=== PATIENT | female | born 2000 | race Caucasian/White ===

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

== ENCOUNTER 2018-01-07 22:27 | Emergency (ER) | END 2018-01-08 01:29 | disposition home or self-care (01) ==

== ENCOUNTER 2018-06-08 23:18 | Emergency (ER) | payer OTHER ==
[~2018-06-08] VITALS: Ht 152.4 cm; Wt 84.1 kg
[~2018-06-08 23:18] MED LIST: ACET325T33 PO; ACET500C5 PO; ALBU18HF INHALATION; AMOX500C2 PO; CEPH-443 PO; GUAI-637 PO; IBUP-1542 PO; IBUP-1561 PO; SODI126M NASAL
[2018-06-08 23:23] VITALS: BP 125/72; PULSE 106; RESP 20; Ht 152.4 cm; Wt 84.1 kg
[2018-06-09] MEDS ORDERED: KETOROLAC 30 MG INJ IM STA (02:23)
--- NOTE | 2018-06-09 02:25 | ERD ---
ER Documentation Chief Complaint Chief Complaint C/O TAILBONE PAIN X1 WEEK HPI This is a 18-year-old female presents to emerge department with complaints of tailbone pain for about a week. Stated that she fell a week ago while skating, landed on her tailbone. Was ambulatory after the injury. Did not see a provide r for this. Did not have any imaging for this. LMP: 05/07/2018. . Denies headache, head injury, loss of consciousness, dizziness, neck pain, neck stiffness, throat pain, difficulty swallowing, difficulty breathing lying flat, shoulder pain, chest pain, back pain, abdominal pain, nausea, vomiting, constipation, diarrhea, urinary symptoms, or possibility being p regnant, loss of bowel and bladder control, trauma, injury, falls, difficulty walking due to pain, numbness or tingling sensation, calf pain, recent travel, recent major surgery in the last 3 weeks, calf pain, recent long travel, recent exposure to any illness, recent antibiotic use in the last 3 months, fever, chills, seizures. Past medical history: Surgical history: Social: Denies smoking, use of alcoholic beverages, use of illegal drugs. [facility] is requesting an insisting imaging of the tailbone. ROS All systems reviewed and are negative except as per history of present illness. Medications Home Meds Active Scripts Cephalexin* (Keflex*) 500 Mg Capsule, 500 MG PO TID for 7 Days, CAP Prov:PASILABAN,KLAR F 06/09/18 Ibuprofen* (Motrin*) 800 Mg Tab, 800 MG PO Q6H PRN for PAIN AND OR ELEVATED TEMP, #30 TAB Prov:PASILABANDEBORAHAR F 06/09/18 Guaifenesin* (Robitussin*) 100 Mg/5 Ml Syrup, 200 MG PO Q6H PRN for COUGH, #120 ML Prov:DONAVON DAVID. DIRECTOR OF COMMUNITY EDUCATION 01/08/18 Sodium Chloride (Saline Nasal Mist) 126 Ml Mist, 2 SPRAY NASAL Q2H PRN for NASAL CONGESTION, #1 BOTTLE Prov:DONAVON DAVID. DIRECTOR OF COMMUNITY EDUCATION 01/08/18 Acetaminophen* (Tylophen*) 500 Mg Capsule, 1 CAP PO Q6H PRN for PAIN AND OR ELEVATED TEMP, #20 CAP Prov:DONAVON DAVID. DIRECTOR OF COMMUNITY EDUCATION 01/08/18 Albuterol Sulfate* (Ventolin HFA*) 18 Gm Hfa.aer.ad, 2 PUFF INHALATION Q4H, #1 INHALER Prov:DONAVON DAVID DIRECTOR OF COMMUNITY EDUCATION 01/08/18 Ibuprofen* (Motrin*) 400 Mg Tab, 400 MG PO Q6H PRN for PAIN AND OR ELEVATED TEMP, #30 TAB Prov:CRUZ WHITEC 04/07/17 Acetaminophen* (Tylenol*) 325 Mg Tablet, 2 TAB PO Q4 PRN for PAIN AND OR ELEVATED TEMP, #30 TAB Prov:CRUZ WHITE PA-C 04/07/17 Amoxicillin* (Amoxicillin*) 500 Mg Cap, 500 MG PO TID for 10 Days, CAP Prov:CRUZ WHITE PA-C 04/07/17 Cephalexin* (Keflex*) 500 Mg Capsule, 500 MG PO QID for 10 Days, CAP Prov:TANIA HOLLOWAY NP 07/13/15 Ibuprofen* (Motrin*) 600 Mg Tab, 600 MG PO Q6H PRN for PAIN AND OR ELEVATED TEMP, #30 TAB Prov:TANIA HOLLOWAY NP 07/13/15 Reported Medications [None] Unknown Strength No Conflict Check 07/13/15 Allergies Allergies: Coded Allergies: No Known Allergy (Unverified , 06/09/18) PMhx/Soc Medical and Surgical Hx: pt denies Medical Hx, pt denies Surgical Hx Hx Alcohol Use: No Hx Substance Use: No Hx Tobacco Use: No Smoking Status: Never smoker Physical Exam Vitals Physical Exam Const: No acute distress Head: Atraumatic Eyes: Normal Conjunctiva ENT: Normal External Ears, Nose and Mouth. Neck: Full range of motion. No meningismus. Resp: Clear to auscultation bilaterally Cardio: Regular rate and rhythm, no murmurs Abd: Soft, non tender, non distended. Normal bowel sounds Skin: No petechiae or rashes Back: No midline or flank tenderness. Bilateral hips are stable and unremarkable. Able to bear weight on left lower extremity. Able to bear weight on right lower extremity. Negative straight leg test bilaterally. Negative cross straight leg test bilaterally. C-spine/T-spine/L-spine are midline with good and full range of motion and is no swelling/deformity/bulging/point of tenderness. No saddle anesthesia. No neurovascular deficit. Ambulatory with steady gait. Ext: No cyanosis, or edema Neur: Awake and alert. No neurological deficits. Psych: Normal Mood and Affect Results 24 hrs Laboratory Tests Test 06/09/18 02:41 06/09/18 02:42 Urine Color YELLOW Urine Clarity SLIGHTLY CLOUDY Urine pH 5.0 Urine Specific [place] 1.031 Urine Ketones NEGATIVE mg/dL Urine Nitrite NEGATIVE mg/dL Urine Bilirubin NEGATIVE mg/dL Urine Urobilinogen NEGATIVE mg/dL Urine Leukocyte Esterase 1+ Yuan/ul Urine Microscopic RBC 2 /HPF Urine Microscopic WBC 23 /HPF Urine Squamous Epithelial Cells FEW /HPF Urine Bacteria FEW /HPF Urine Mucus FEW /HPF Urine Hemoglobin NEGATIVE mg/dL Urine Glucose NEGATIVE mg/dL Urine Total Protein NEGATIVE mg/dl POC Beta HCG, Qualitative NEGATIVE Current Medications Medications Dose Sig/Bairon Start Time Status Last (Trade) Ordered Route PRN Stop Time Admin Dose Reason Admin Ketorolac 30 mg ONCE STAT 06/09/18 DC 06/09/18 Tromethamine IM 02:23 02:48 (Toradol) 06/09/18 02:25 Procedures/MDM Diagnostic tests: POC urine : Negative. Urinalysis: UTI. X-ray of the sacral bone: No definite fracture. Treatment: Toradol IM. Re-evaluation: Denies pain. No saddle anesthesia. No neurovascular deficit. Ambulatory with steady gait. No neurological deficit. Differential diagnosis I have low suspicion for fracture, T-spine fracture, pelvic fracture, hip dislocation, septic joint. Final diagnosis: Tailbone contusion. UTI. Prescription: Motrin. Flexeril. Keflex. Follow-up with PCP in the next 24-48 hours. Come back here in the emergency department for any new symptoms or any worsening symptoms. All questions and concerns were answered. Patient and family members verbalized understanding and agreed with plan of care. Hemodynamically stable on discharge. Departure Diagnosis: Primary Impression: Coccyx contusion Additional Impressions: Contusion of coccyx UTI (urinary tract infection) Condition: Stable Additional Instructions: Follow-up with PCP in the next 24-48 hours. Come back here in the emergency department for any new symptoms or any worsening symptoms. GERTRUDE SARAVIA Jun 09, 2018 02:25
[2018-06-09] MEDS ORDERED: IBUP800T48 PO (04:15)
[2018-06-09] MEDS ORDERED: CEPH-443 PO (04:15)
== END 2018-06-09 04:54 | disposition home or self-care (01) ==
LOC: FTE 23:18
DX: S30.0XXA Contusion of lower back and pelvis, initial encounter (principal); N39.0 Urinary tract infection, site not specified; V00.121A Fall from non-in-line roller-skates, initial encounter
CPT/HCPCS: 72220; 81001; 81025; J1885; 96372

== ENCOUNTER → 2018-10-06 | Emergency (ER) | payer OTHER ==
[~2018-10-06] VITALS: Ht 152.4 cm; Wt 85.2 kg
[~2018-10-06] MED LIST changes: +IBUP800T48 PO; +KETOROLAC 30 MG INJ IM STA
[2018-10-06 14:52] VITALS: BP 122/91; PULSE 93; RESP 16; Ht 152.4 cm; Wt 85.2 kg
--- NOTE | 2018-10-06 16:32 | ERD ---
ER Documentation Chief Complaint Chief Complaint LEFT BIG TOE PAIN HPI 18-year-old female presented to ED for left big toe pain. Patient states she recently was in [place] and slipped on a rock. Patient states she still having pain in her big toe. Patient states the pain is a 6 out of 10 and hurts most when she walks. Patient states she has not seen a provider for this yet. Patient states she has not taken any medications for pain. Patient states she can ambulate without the need of crutches. Patient's present to ED and wants to know if her foot is broken. Patient denies any past medical history this is never happened to her before ROS All systems reviewed and are negative except as per history of present illness. Medications Home Meds Active Scripts Ibuprofen* (Motrin*) 400 Mg Tab, 400 MG PO Q6, #30 TAB Prov:VERITO FOFANA PA-C 10/06/18 Cephalexin* (Keflex*) 500 Mg Capsule, 500 MG PO TID for 7 Days, CAP Prov:GERTRUDE SARAVIA F 06/09/18 Ibuprofen* (Motrin*) 800 Mg Tab, 800 MG PO Q6H PRN for PAIN AND OR ELEVATED TEMP, #30 TAB Prov:PASILADEBORAH TOBINAR F 06/09/18 Guaifenesin* (Robitussin*) 100 Mg/5 Ml Syrup, 200 MG PO Q6H PRN for COUGH, #120 ML Prov:DONAVON DAVID NP 01/08/18 Sodium Chloride (Saline Nasal Mist) 126 Ml Mist, 2 SPRAY NASAL Q2H PRN for NASAL CONGESTION, #1 BOTTLE Prov:DONAVON DAVID. WEATHERIZATION AND HOUSING INSPECTOR 01/08/18 Acetaminophen* (Tylophen*) 500 Mg Capsule, 1 CAP PO Q6H PRN for PAIN AND OR ELEVATED TEMP, #20 CAP Prov:DONAVON DAVID. WEATHERIZATION AND HOUSING INSPECTOR 01/08/18 Albuterol Sulfate* (Ventolin HFA*) 18 Gm Hfa.aer.ad, 2 PUFF INHALATION Q4H, #1 INHALER Prov:DONAVON DAVID WEATHERIZATION AND HOUSING INSPECTOR 01/08/18 Ibuprofen* (Motrin*) 400 Mg Tab, 400 MG PO Q6H PRN for PAIN AND OR ELEVATED TEMP, #30 TAB Prov:CRUZ WHITE PA-C 04/07/17 Acetaminophen* (Tylenol*) 325 Mg Tablet, 2 TAB PO Q4 PRN for PAIN AND OR ELEVATED TEMP, #30 TAB Prov:CRUZ WHITE PA-C 04/07/17 Amoxicillin* (Amoxicillin*) 500 Mg Cap, 500 MG PO TID for 10 Days, CAP Prov:CRUZ WHITE PA-C 04/07/17 Cephalexin* (Keflex*) 500 Mg Capsule, 500 MG PO QID for 10 Days, CAP Prov:TANIA HOLLOWAY NP 07/13/15 Ibuprofen* (Motrin*) 600 Mg Tab, 600 MG PO Q6H PRN for PAIN AND OR ELEVATED TEMP, #30 TAB Prov:TANIA HOLLOWAY WEATHERIZATION AND HOUSING INSPECTOR 07/13/15 Reported Medications [None] Unknown Strength No Conflict Check 07/13/15 Allergies Allergies: Coded Allergies: No Known Allergy (Unverified , 06/09/18) PMhx/Soc Medical and Surgical Hx: pt denies Medical Hx, pt denies Surgical Hx Hx Alcohol Use: No Hx Substance Use: No Hx Tobacco Use: No Smoking Status: Never smoker FmHx Family History: No diabetes, No coronary disease, No other Physical Exam Vitals Vital Signs Date Temp Pulse Resp B/P (MAP) Pulse Ox O2 O2 Flow FiO2 Time Delivery Rate 10/06/18 98.5 93 16 122/91 100 14:52 (101) Physical Exam Const: No acute distress Resp: Clear to auscultation bilaterally Cardio: Regular rate and rhythm, no murmurs Ext: No cyanosis, or edema, patient has good pedal pulses, and good motor/sensation in the extremity. Patient does have pain on palpation to the left big toe. Patient is able to wiggle her toes without difficulty. No signs of open wound, abscess, or detached toenail. Results 24 hrs Laboratory Tests Test 10/06/18 16:02 POC Beta HCG, Qualitative NEGATIVE Current Medications Medications Dose Sig/Bairon Start Time Status Last (Trade) Ordered Route PRN Stop Time Admin Dose Reason Admin Ketorolac 30 mg ONCE STAT 10/06/18 DC 10/06/18 Tromethamine IM 15:44 16:07 (Toradol) 10/06/18 15:46 Procedures/MDM ED course: The patient was stable throughout the ED course. The patient and/or family informed of laboratory and diagnostic imaging results throughout the ED course. Diagnostic imaging: Read by radiologist Anurag AYERS: XR Foot. CLINICAL INDICATION: Pain TECHNIQUE: AP, lateral and oblique views of the left foot was obtained. The images were reviewed on a PACS workstation. COMPARISON: None. FINDINGS: The bones of the foot appear intact, with no evidence of fracture, dislocation, or subluxation. The joint spaces are preserved. The bone mineralization is normal. No significant soft tissue swelling is seen. RPTAT: AA IMPRESSION: Unremarkable left foot radiographs. Procedures: None Medications given in ER: Toradol Patient tolerated medication well with no adverse reactions. Patient reported improvement in pain. Medical decision makin-year-old female presented to ED for left big toe pain secondary to an injury that occurred in [place] earlier this week. Patient was sent for lower extremity x-ray which revealed no dislocation no fracture. Patient with had mild pain during palpation. Patient can ambulate without assistance. Patient was given a Toradol injection for pain. Physical exam showed no neuro deficits in the lower extremity. At this time I have low suspicion for fracture, dislocation, compartment syndrome, osteomyelitis. I have offered to splint the extremity with the patient feels comfortable in the shoes she is wearing. After the patient scratches but she feels like she can ambulate without them. I advised patient she needs to follow-up with her primary care provider in 1 to 2 days regarding this visit. I advised patient that the symptoms keep persisting she may need to see an orthopedic for this injury. Patient had no further questions upon discharge and is agreement to the treatment plan Prescription for home: Motrin I have discussed with the patient proper use and common side effects to expert with the medication . I advised the patient/family to speak with the pharmacist dispensing the medication to be advised of any potential drug interactions with other medication or supplements they may be taking. Discharge: At this time, patient is stable for discharge and outpatient management. I have instructed the patient to follow-up with his\her primary care physician in 1 to 2 days. I have discussed with the patient the possibility of needing to see a specialist for further work-up and imaging studies if symptoms persist. I have instructed the patient to promptly return to the ER for any new or worsening symptoms including increased pain, fever, nausea, vomiting, weakness or LOC. The patient and\or family expressed understanding of and agreement with this plan. All questions were answered. Home care instructions were provided. Disclaimer: Inadvertent spelling and grammatical errors are likely due to EHR\dictation software use and do not reflect on the overall quality of patient care. Also, please note that the electronic time recorded on the note does not necessarily reflect the actual time of the patient encounter. Departure Diagnosis: Primary Impression: Pain of toe Laterality: left Qualified Codes: M79.675 - Pain in left toe(s) Condition: Stable Patient Instructions: Sprain Toe Referrals: [facility] (PCP) [facility] YOU HAVE RECEIVED A MEDICAL SCREENING EXAM AND THE RESULTS INDICATE THAT YOU DO NOT HAVE A CONDITION THAT REQUIRES URGENT TREATMENT IN THE EMERGENCY DEPARTMENT. FURTHER EVALUATION AND TREATMENT OF YOUR CONDITION CAN WAIT UNTIL YOU ARE SEEN IN YOUR DOCTORS OFFICE WITHIN THE NEXT 1-2 DAYS. IT IS YOUR RESPONSIBILITY TO MAKE AN APPOINTMENT FOR FOLOW-UP CARE. IF YOU HAVE A PRIMARY DOCTOR --you should call your primary doctor and schedule an appointment IF YOU DO NOT HAVE A PRIMARY DOCTOR YOU CAN CALL OUR PHYSICIAN REFERRAL HOTLINE AT IF YOU CAN NOT AFFORD TO SEE A PHYSICIAN YOU CAN CHOSE FROM THE FOLLOWING [facility] [address] [facility]. [facility] [address] [facility] [facility] [address] [facility] [facility] [address] [facility] [address] [facility]. [facility]. [address] [facility]. [facility] YOU HAVE RECEIVED A MEDICAL SCREENING EXAM AND THE RESULTS INDICATE THAT YOU DO NOT HAVE A CONDITION THAT REQUIRES URGENT TREATMENT IN THE EMERGENCY DEPARTMENT. FURTHER EVALUATION AND TREATMENT OF YOUR CONDITION CAN WAIT UNTIL YOU ARE SEEN IN YOUR DOCTORS OFFICE WITHIN THE NEXT 1-2 DAYS. IT IS YOUR RESPONSIBILITY TO MAKE AN APPOINTMENT FOR FOLOW-UP CARE. IF YOU HAVE A PRIMARY DOCTOR --you should call your primary doctor and schedule and appointment IF YOU DO NOT HAVE A PRIMARY DOCTOR YOU CAN CALL OUR PHYSICIAN REFERRAL HOTLINE AT . IF YOU CAN NOT AFFORD TO SEE A PHYSICIAN YOU CAN CHOSE FROM THE FOLLOWING [facility] INSTITUTIONS: [facility] [address] [place] [address] [facility] [address] [place] [address] [facility] + [facility] [address] [place] [address] Additional Instructions: Call your primary care doctor TOMORROW for an appointment during the next 1-2 days.See the doctor sooner or return here if your condition worsens before your appointment time. VERITO FOFANA PA-C Oct 06, 2018 16:32
== END | disposition home or self-care (01) ==
LOC: FTE 14:33
DX: M79.675 Pain in left toe(s) (principal)
CPT/HCPCS: 73630; 81025; 96372; J1885; Z7502